=== PATIENT | male | born 1980 | race Caucasian/White ===

== ENCOUNTER 2017-02-21 19:59 | Emergency (ER) | payer OTHER ==
[2017-02-21 21:02] VITALS: BP 123/81; PULSE 72; RESP 18; O2SAT 97
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
== END 2017-02-22 00:07 ==
LOC: NEDAMB 19:59 → NEPD 02-22 00:07
DX: S09.90XA Unspecified injury of head, initial encounter (principal); F10.129 Alcohol abuse with intoxication, unspecified; S00.83XA Contusion of other part of head, initial encounter; J45.909 Unspecified asthma, uncomplicated; F17.200 Nicotine dependence, unspecified, uncomplicated; W22.8XXA Striking against or struck by other objects, initial encounter; Z88.0 Allergy status to penicillin; Z88.6 Allergy status to analgesic agent; Z88.5 Allergy status to narcotic agent
CPT/HCPCS: 70450; 72125; 99285